=== PATIENT | male | born 1970 | race Caucasian/White ===

== ENCOUNTER 2018-12-07 14:45 | Emergency (ER) | payer BC, SELFPAY ==
[2018-12-07 14:47] VITALS: BP 162/109; PULSE 110; RESP 16; TEMP 36.8; O2SAT 96; BMI 27.2
--- NOTE | 2018-12-07 15:11 | VDLE_ITS ---
Reason For Study: Swelling RIGHT LEFT CFV is compressible, spontaneous, phasic, GSV is normal. competent and demonstrates normal Acute deep vein thrombosis is noted in the augmentation. left common femoral vein. Procedure Acute deep vein thrombosis is noted in the Exam performed portable in ED. left femoral vein. A preliminary report was called and/or faxed Acute deep vein thrombosis is noted in the to Villegas. left popliteal vein. T/P Trunk is compressible. PTV is compressible. LT PerV is compressible. Interpretation Summary Acute deep venous thrombosis left common femoral, femoral, and popliteal veins Patent and compressible left great saphenous vein Patent and compressible right common femoral vein Ordering Physician: Mode Villegas Performed By: Deana Diaz RVT
--- NOTE | 2018-12-07 15:11 | ED.VIS.GEN ---
History of Present Illness Chief Complaint: Lower Extremity Injury Detail of Chief Complaint: Atraumatic leg swelling and tightness Informant: Patient Onset: Yesterday - Vision states leg felt tight last evening. He did not look at the leg to see if it was discolored. Context: Sudden Onset Timing: Continuous Quality: Swollen discolored left lower extremity Location: Left lower extremity Current Severity: Moderate Maximum Severity: Moderate Worsened by: No risk factors for VTE Relieved by: Nothing Associated Symptoms: No associated dyspnea or chest discomfort Narrative: Patient is a 48-year-old male with history of GERD. He presents with atraumatic left lower extremity pain and discoloration with onset last evening. He denies shortness of breath or chest discomfort. He denies dyspnea on exertion. He denies any risk factors for PE or DVT. He denies prior history of DVT or PE. He does not have history of GI bleed and denies black or maroon stool. He does not report bruising easily. He denies night sweats or weight loss. Prior similar symptoms: No Recent Illness/Hospitalization: No - Past Medical History (1) History of gastroesophageal reflux (GERD) Status: Acute Past Medical History - Allergies and Home Meds Allergies/Adverse Reactions: Allergies No Known Allergies Allergy (Verified 12/07/18 14:46) Primary Care Physician: Kirby Modi MD [Primary Care Provider] - Prior records reviewed: No Past Medical History: None Surgical History: no surgical history Lives: Spouse/ Significant Other Smoking Status: Never smoker Alcohol: Rare Drugs: None Review of Systems General: Denies: Chills, Fever, Subjective, Sweats, Weight loss Eyes: Denies: Visual changes - bilaterally, Blurred Vision - bilaterally ENT: Denies: Rhinorrhea, Sore throat Cardiovascular: Denies: Chest pain, Palpitations, Heart racing Respiratory: Denies: Dyspnea, Cough, Dyspnea on exertion Gastrointestinal: Denies: Abdominal pain, Nausea, Vomiting, Diarrhea, Melena, Hematochezia Genitourinary: Denies: Dysuria, Hematuria, Frequency Musculoskeletal: Reports: Swelling, Extremity Pain. Denies: Myalgias, Arthralgias, Neck pain, Back pain Skin: Denies: Rash, Wounds Neurological: Denies: Headache, Weakness, Parasthesia Psych: Denies: Depression, Anxiety Endocrine: Denies: Polyuria, Polydipsia Hematologic: Denies: Easy bruising, Easy bleeding Physical Exam Vital Signs/Narrative: Vital Signs Temp Pulse Resp BP Pulse Ox 12/07/18 14:47 98.2 F 110 H 16 162/109 H 96 Inital Vital Signs reviewed: Yes General: Well nourished, Well developed, No Acute Distress Head: Normocephalic, Atraumatic Eyes: Perrl, EOMI ENT: Moist mucous membranes, No rhinorrhea Neck: Supple, Nontender Cardiovascular: Regular rate, Regular rhythm, No murmurs, Normal S1, Normal S2 Respiratory: No distress, CTA bilaterally, Chest nontender Abdomen: Soft, Nontender, Nondistended, Normal bowel sounds Back: Nontender, Normal Inspection Extremities: - - Left lower extremity is swollen, discolored from the groin to his toes. There is minimal pitting edema. Skin: Normal color, No rash Neurological: Alert, Oriented x3, Cranial nerves II-XII grossly intact, Normal Strength, Normal Sensation Psychological: Normal affect, Normal Mood Diagnostic/Tx/Re-eval Laboratory Results 12/07/18 15:25 Sodium 132 L Potassium 3.9 Chloride 98 Carbon Dioxide 27.0 Anion Gap 7 BUN 26 H Creatinine 1.61 H Estim Creat Clear Calc 59.20 Est GFR (MDRD) Af Amer 60 Est GFR (MDRD) Non-Af 49 L BUN/Creatinine Ratio 16.1 Glucose 110 H Calcium 9.3 Creatinine is elevated 1.61 with a GFR of 49. Spoke with the pharmacist, john, regarding dose reduction of anticoagulant. Since patient has a DVT and plan was to treat with Eliquis. Dose does not need to be reduced. He will need to follow-up with his primary care physician to assess kidney function as well as continued care for the DVT. - Medical Decision Making Venous duplex study was obtained to confirm DVT. Suspect extensive. Basic metabolic panel was obtained to assess renal function to determine if he is a candidate for Eliquis or Xarelto. Patient was explained risk benefits of anticoagulation and his 3 options which include initially Lovenox with Coumadin versus Xarelto versus Eliquis. He was explained risk benefits of all agents. After informing him of the risks of each agent benefits of each agents he elected Eliquis if venous duplex study confirms DVT. ED Disposition - Plan for ED Patient: Disposition: Home or Assisted Living Diagnosis: DVT, femoral, acute, Renal insufficiency, mild Instructions: Dvt, Renal Insufficiency Prescriptions: Apixaban [Eliquis] 5 mg PO BID #74 tab Prescription Printed Referrals: Kirby Modi MD [Primary Care Provider] - 1-2 Weeks Additional Instructions: You will need to follow-up with Dr. Modi for continued treatment of your clot and for evaluation of your kidney function.
[2018-12-07 15:22] VITALS: PULSE 93; RESP 18; O2SAT 98
[2018-12-07 15:59] LABS: Anion Gap 7 (5-15); BUN 26 mg/dL (7-18); BUN/Creat Ratio 16.1 RATIO (10-20); Calcium,Total 9.3 mg/dL (8.5-10.1); Chloride 98 mmol/L (98-107); Creatinine, Serum 1.61 mg/dL (0.70-1.30); EST Glomerular Filtration Rate 49 mL/min (>60); Est Glom Filt Rate - Afr Amer 60 mL/min (>60); Glucose 110 mg/dL (74-106); Potassium 3.9 mmol/L (3.5-5.1); Sodium Level 132 mmol/L (136-145)
[2018-12-07 16:40] VITALS: BP 142/94; PULSE 84; RESP 18; O2SAT 98
[2018-12-07] MEDS: APIXABAN 5 MG TABLET 10 MG PO (16:40)
== END 2018-12-07 16:43 | disposition home or self-care (01) ==
PROVIDERS: Emergency Provider Emergency Medicine; Family Provider Family Medicine; PCP Family Medicine
DX: I82.412 Acute embolism and thrombosis of left femoral vein (principal); N28.9 Disorder of kidney and ureter, unspecified; K21.9 Gastro-esophageal reflux disease without esophagitis
CPT/HCPCS: 80048; 93971; 99283

== ENCOUNTER → 2019-01-11 | Outpatient (CLI) | payer BC, SELFPAY ==
[2019-01-11 16:01] LABS: International Normalized Ratio 1.1; Prothrombin Time (Protime)PT. 14.4 SECONDS (11.7-14.9)
== END | disposition home or self-care (01) ==
LOC: LABSPEC 15:36
PROVIDERS: Family Provider Family Medicine; PCP Family Medicine; Referring Provider Family Medicine; Visit Provider Family Medicine
DX: I82.412 Acute embolism and thrombosis of left femoral vein (principal)
CPT/HCPCS: 85610

== ENCOUNTER → 2019-01-15 16:10 | Outpatient (CLI) | payer BC, SELFPAY ==
[2019-01-15 16:31] LABS: International Normalized Ratio 1.2; Prothrombin Time (Protime)PT. 15.4 SECONDS (11.7-14.9)
== END ==
PROVIDERS: Family Provider Family Medicine; PCP Family Medicine; Referring Provider Family Medicine; Visit Provider Family Medicine
DX: Z86.718 Personal history of other venous thrombosis and embolism (principal)
CPT/HCPCS: 85610

== ENCOUNTER → 2019-01-19 | Outpatient (CLI) | payer BC, SELFPAY ==
[2019-01-19 15:47] LABS: International Normalized Ratio 1.3; Prothrombin Time (Protime)PT. 15.6 SECONDS (11.7-14.9)
== END | disposition home or self-care (01) ==
PROVIDERS: Family Provider Family Medicine; PCP Family Medicine; Referring Provider Family Medicine; Visit Provider Family Medicine
DX: Z86.718 Personal history of other venous thrombosis and embolism (principal)
CPT/HCPCS: 85610

== ENCOUNTER → 2019-01-23 | Outpatient (CLI) | payer BC, SELFPAY ==
[2019-01-23 16:31] LABS: International Normalized Ratio 1.4; Prothrombin Time (Protime)PT. 17.2 SECONDS (11.7-14.9)
== END | disposition home or self-care (01) ==
PROVIDERS: Family Provider Family Medicine; PCP Family Medicine; Referring Provider Family Medicine; Visit Provider Family Medicine
DX: I82.412 Acute embolism and thrombosis of left femoral vein (principal)
CPT/HCPCS: 85610

== ENCOUNTER → 2019-01-30 | Outpatient (CLI) | payer BC, SELFPAY ==
[2019-01-30 15:58] LABS: International Normalized Ratio 1.3; Prothrombin Time (Protime)PT. 16.3 SECONDS (11.7-14.9)
== END | disposition home or self-care (01) ==
PROVIDERS: Family Provider Family Medicine; PCP Family Medicine; Referring Provider Family Medicine; Visit Provider Family Medicine
DX: I82.412 Acute embolism and thrombosis of left femoral vein (principal)
CPT/HCPCS: 85610

== ENCOUNTER → 2019-02-06 | Outpatient (CLI) | payer BC, SELFPAY ==
[2019-02-06 15:52] LABS: International Normalized Ratio 1.5; Prothrombin Time (Protime)PT. 18.2 SECONDS (11.7-14.9)
== END | disposition home or self-care (01) ==
PROVIDERS: Family Provider Family Medicine; PCP Family Medicine; Referring Provider Family Medicine; Visit Provider Family Medicine
DX: Z86.718 Personal history of other venous thrombosis and embolism (principal)
CPT/HCPCS: 85610

== ENCOUNTER → 2019-02-13 15:58 | Outpatient (CLI) | payer BC, SELFPAY ==
[2019-02-13 16:10] LABS: International Normalized Ratio 1.9; Prothrombin Time (Protime)PT. 21.4 SECONDS (11.7-14.9)
== END ==
PROVIDERS: Family Provider Family Medicine; PCP Family Medicine; Referring Provider Family Medicine; Visit Provider Family Medicine
DX: I82.412 Acute embolism and thrombosis of left femoral vein (principal)
CPT/HCPCS: 85610

== ENCOUNTER → 2019-02-27 15:47 | Outpatient (CLI) | payer BC, SELFPAY ==
[2019-02-27 16:03] LABS: International Normalized Ratio 1.9; Prothrombin Time (Protime)PT. 21.9 SECONDS (11.7-14.9)
== END ==
PROVIDERS: Pediatrics; Family Provider Family Medicine; PCP Family Medicine; Referring Provider Family Medicine; Visit Provider Family Medicine
DX: I82.412 Acute embolism and thrombosis of left femoral vein (principal)
CPT/HCPCS: 85610

== ENCOUNTER → 2019-03-13 15:47 | Outpatient (CLI) | payer BC, SELFPAY ==
[2019-03-13 16:25] LABS: International Normalized Ratio 2.1; Prothrombin Time (Protime)PT. 23.8 SECONDS (11.7-14.9)
== END ==
PROVIDERS: Family Provider Family Medicine; PCP Family Medicine; Referring Provider Family Medicine; Visit Provider Family Medicine
DX: I82.412 Acute embolism and thrombosis of left femoral vein (principal)
CPT/HCPCS: 85610

== ENCOUNTER → 2019-03-26 16:07 | Outpatient (CLI) | payer BC, SELFPAY ==
[2019-03-26 17:16] LABS: International Normalized Ratio 1.8; Prothrombin Time (Protime)PT. 20.6 SECONDS (11.7-14.9)
== END ==
PROVIDERS: Family Provider Family Medicine; PCP Family Medicine; Referring Provider Family Medicine; Visit Provider Family Medicine
DX: I82.412 Acute embolism and thrombosis of left femoral vein (principal)
CPT/HCPCS: 85610